=== PATIENT | female | born 1990 | race Hispanic/Latino ===

== ENCOUNTER 2023-08-27 21:31 | Emergency (ER) | payer SELFPAY | END 2023-08-27 23:08 | disposition home or self-care (01) | LOC: ERS 21:31 | DX: H66.91 Otitis media, unspecified, right ear (principal) | CPT/HCPCS: 99282 ==

== ENCOUNTER 2023-10-08 21:41 | Emergency (ER) | payer SELFPAY ==
[2023-10-08 23:07] LABS: SARS-CoV-2 NAA Rapid Test Not Detected (NotDetected)
== END 2023-10-08 22:37 | disposition home or self-care (01) ==
LOC: ERS 21:41
DX: J06.9 Acute upper respiratory infection, unspecified (principal); J32.9 Chronic sinusitis, unspecified; Z20.822 Contact with and (suspected) exposure to COVID-19
CPT/HCPCS: 71045

== ENCOUNTER 2023-12-27 21:07 | Emergency (ER) | payer SELFPAY ==
[2023-12-27] MEDS ORDERED: Fluorescein Opthalmic Strip ONE (23:44)
== END 2023-12-28 00:04 | disposition home or self-care (01) ==
LOC: ERS 21:07
DX: S00.81XA Abrasion of other part of head, initial encounter (principal); X50.3XXA Overexertion from repetitive movements, initial encounter
CPT/HCPCS: 99283